=== PATIENT | male | born 2000 | race Caucasian/White ===

== ENCOUNTER 2022-11-12 14:18 | Emergency (ER) | payer MEDICAID ==
[~2022-11-12] VITALS: Ht 172.7 cm; Wt 74.0 kg
[2022-11-12 14:31] VITALS: BP 145/87
[2022-11-12] MEDS ORDERED: SODIUM CHLORIDE 0.9% 1,000 ML IV ONE (16:00)
[2022-11-12 19:01] LABS: HEMATOCRIT. 52.7 % (42.0-52.0); HEMOGLOBIN. 17.9 g/dL (14.0-18.0); MEAN CORPUSCULAR HEMOGLOBIN 29.4 pg (28.0-32.0); MEAN CORPUSCULAR VOLUME 86.8 fL (80.0-94.0); PLATELET 170 x1000/uL (130-400); RED BLOOD CELL COUNT 6.07 mill/uL (4.7-6.1); RED CELL DISTRIBUTION WIDTH 14.3 % (11.6-14.6)
[2022-11-12 19:13] LABS: CHLORIDE 105 mEq/L (98-107)
[2022-11-12 19:23] LABS: ETHANOL BLOOD < 10 mg/dL
[2022-11-12 21:54] LABS: PLATELET ESTIMATE NORMAL
== END 2022-11-12 21:07 | disposition home or self-care (01) ==
LOC: ER 14:18
DX: T42.4X1A Poisoning by benzodiazepines, accidental (unintentional), initial encounter (principal); Y92.89 Other specified places as the place of occurrence of the external cause; R41.82 Altered mental status, unspecified
CPT/HCPCS: 36415; 80053; 80307; 80320; 80329; 84484; 85025; 93005; 99284; J7030; Z7610; G0480